=== PATIENT | female | born 1980 | race Caucasian/White ===

== ENCOUNTER 2017-12-31 18:58 | Inpatient (IN) ==
[2017-12-31] MEDS ORDERED: Ibuprofen 600 MG TABLET PO PRN ×2 (19:34→23:06)
--- NOTE | 2017-12-31 20:12 | OB/GYN History & Physical ---
Date of Encounter: 12/31/17 Time of Encounter: 20:04 Assessment and Plan (1) Vaginal delivery Current visit: Yes Status: Acute Pt doing well upon arrival. Placenta delivered spontaneous and intact soon after arrival. Lochia moderate. Pitocin given IM. Plan to observe in L&D for 2 hours and then transfer to . (2) History of depression Current visit: Yes Status: Acute Zoloft restarted per pt request. (3) Tobacco abuse Current visit: Yes Status: Acute (4) Social problem Current visit: Yes Status: Acute donor services technician consult ordered. (5) No care in current Current visit: Yes Status: Acute Qualifiers: Trimester: third trimester Qualified Code(s): O09.33 - Supervision of with insufficient care, third trimester History of Present Illness Chief complaint: delivered at home HPI: Ms. Brown is a 37 year old female who presents via EMS after delivering a baby girl at home. EMS arrived after baby was born, clamped cord and transported Mom & Baby. Mom reports she did not realize she was in labor; she notes pain this afternoon after carrying her 1 y/o in his car seat. She says she went to the restroom and felt pressure and realized baby was coming. Believes LMP was end of March 2017. Reports 3 prior deliveries were vaginal term deliveries without complications. She reports no PNC due to social situations. She reports financial and family stress; her 20 y/o daughter was recently admitted for depression and suicide attempt. Pt reports h/o PP depression following delivery of her 1 year-old and a history of depression and suicide ideation a "several years ago". She states that she has felt isolated since the of her last child because their car has been broken down and she has been alone. Past Med Surg Social Fam HX - Past Medical History Medical history: no medical history Psychiatric history: depression (per HPI) - Past Surgical History Surgical History: no surgical history - Social History Smoking Status: Current every day smoker Smokeless Tobacco Status: No Alcohol use: none Drug use: none Obstetrical History - Pregnancies : 4 Livin - History/Complications History/Complications: Pt reports 3 prior term vaginal deliveries without complications. Medications and Allergies Ibuprofen [Motrin] 800 mg PO Q8HR #30 tablet 02/16/15 [Rx] Review of System OB All systems PM: reviewed and no additional remarkable complaints except as stated - Psychiatric Psychiatric: depression (as per HPI) Exam - Constitutional Constitutional: moderate distress - HEENT HEENT: Mucus Membranes Moist - Lungs Respiratory exam: CTAB - Cardiovascular Cardiovascular exam: RRR - Extremities Extremities exam: normal inspection - Anus/Rectum Anus/Rectum: Present: normal perianal skin Results Result Diagrams: 12/31/17 20:12 All other labs normal.
[2017-12-31 20:30] LABS: Basophils # 0.1 K/mcL (0.0-0.2); Basophils % 0.4 %; Eosinophils # 0.3 K/mcL (0.0-0.6); Eosinophils % 1.6 %; Hematocrit 35.2 % (35.3-44.9); Hemoglobin 12.2 g/dL (11.5-15.4); Immature Granulocytes % 0.5 % (0-4); Lymphocytes # 1.7 K/mcL (0.6-4.6); Lymphocytes % 10.1 %; Mean Corpuscular HGB Conc 34.7 g/dL (31.6-35.5); Mean Corpuscular Hemoglobin 30.1 pg (28.0-33.3); Mean Corpuscular Volume 86.9 fL (83.0-100.0); Mean Platelet Volume 10.2 fL (9.4-12.4); Monocytes # 0.7 K/mcL (0.0-1.3); Monocytes % 4.3 %; Neutrophils # 13.8 K/mcL (1.6-8.9); Platelet Count 315 K/mcL (140-400); Red Blood Count 4.05 M/mcL (3.82-4.97); Red Cell Distribution Width 13.8 % (11.5-14.5); Segmented Neutrophils % 83.1 %
[2017-12-31 21:20] LABS: HIV-1&2 Antibody & p24 Ag Nonreactive (Nonreactive); Hepatitis B Surface Antigen Nonreactive (Nonreactive)
[2017-12-31 21:23] LABS: Rubella IgG Antibody POSITIVE (POSITIVE); Varicella Zoster IgG Antibody Positive
[2017-12-31] MEDS ORDERED: Lanolin 7 G OINT...G. TP PRN (23:06)
[2017-12-31] MEDS ORDERED: Measles/Mumps/Rubella Vacc 0.5 ML VIAL SQ PRN (23:06)
[2017-12-31] MEDS ORDERED: Oxytocin 20 units/ LR 1000 mL 20 UNIT/1,000 ML BAG IVC SCH (23:06)
[2017-12-31] MEDS ORDERED: Acetaminophen 325 MG TABLET PO PRN (23:06)
[2017-12-31] MEDS ORDERED: Benzocaine/Menthol 56 GM AEROSOL SPRAY TP PRN (23:06)
[2018-01-01] MEDS ORDERED: Ibuprofen 400 MG TABLET PO SCH
[2018-01-01 00:54] LABS: Bilirubin,Urine Negative (Negative); Blood,Urine Large (Negative); Clarity,Urine Cloudy (Clear); Color,Urine Yellow (Yellow); Glucose,Urine (UA) Normal (Normal); Ketones,Urine Negative (Negative); Leukocyte Esterase,Urine Moderate (Negative); Nitrite,Urine Negative (Negative); Protein,Urine 30 mg/dL (Neg-Trace); Specific Gravity,Urine 1.011 (1.010-1.025); Urobilinogen,Urine Normal (Normal)
[2018-01-01 00:55] LABS: Bacteria,Urine None Seen per hpf (None-Few); Hyaline Casts,Urine None Seen per lpf (None-Few); RBC,Urine TNTC per hpf (0-3); Squamous Epithelial Cell,Urine Many per lpf (None-Few); WBC,Urine 50-100 per hpf (0-3)
[2018-01-01 01:07] LABS: Amphetamine Screen,Urine Positive ng/mL (Cutoff=1000); Barbiturate Screen,Urine Negative ng/mL (Cutoff=200); Benzodiazepines Screen,Urine Negative ng/mL (Cutoff=200); Cannabinoid Screen,Urine Negative ng/mL (Cutoff = 50); Cocaine Screen,Urine Negative ng/mL (Cutoff= 300); Opiate Screen,Urine Negative ng/mL (Cutoff=300); Phencyclidine Screen,Urine Negative ng/mL (Cutoff=25)
[2018-01-01 04:37] LABS: Basophils # 0.1 K/mcL (0.0-0.2); Basophils % 0.5 %; Eosinophils # 0.3 K/mcL (0.0-0.6); Eosinophils % 1.8 %; Hematocrit 33.2 % (35.3-44.9); Hemoglobin 11.4 g/dL (11.5-15.4); Immature Granulocytes % 0.5 % (0-4); Lymphocytes # 2.4 K/mcL (0.6-4.6); Lymphocytes % 15.3 %; Mean Corpuscular HGB Conc 34.3 g/dL (31.6-35.5); Mean Corpuscular Hemoglobin 30.1 pg (28.0-33.3); Mean Corpuscular Volume 87.6 fL (83.0-100.0); Mean Platelet Volume 10.3 fL (9.4-12.4); Monocytes # 0.9 K/mcL (0.0-1.3); Monocytes % 6.1 %; Neutrophils # 11.6 K/mcL (1.6-8.9); Platelet Count 311 K/mcL (140-400); Red Blood Count 3.79 M/mcL (3.82-4.97); Red Cell Distribution Width 13.7 % (11.5-14.5); Segmented Neutrophils % 75.8 %
[2018-01-01 08:23] VITALS: BP 134/93
--- NOTE | 2018-01-01 08:28 | Discharge Summary ---
Date of Encounter: 01/01/18 Time of Encounter: 08:19 - Discharge Diagnosis (1) Vaginal delivery Priority: Primary Status: Acute Comments: S/P Vaginal Delivery Day 1 Pain is well controlled Lochia is light and without clots VSS Tolerating regular diet, passing flatus Voiding without difficulty Discharge home today (2) No care in current Priority: Primary Status: Acute Qualifiers: Trimester: third trimester Qualified Code(s): O09.33 - Supervision of with insufficient care, third trimester (3) Social problem Priority: Secondary Status: Acute (4) Tobacco abuse Priority: Secondary Status: Acute (5) History of depression Priority: Secondary Status: Acute - Discharge Medications Prescriptions: Ibuprofen [Motrin] 600 mg PO Q6HR PRN #30 tablet PRN Reason: cramping Docusate [Colace] 100 mg PO BID PRN #30 capsule PRN Reason: Constipation Ferrous Sulfate 325 mg PO DAILY #90 tablet Vit/FA 1 each PO DAILY #90 tablet Sertraline [Zoloft] 50 mg PO DAILY #90 tablet Home Medications: Acetaminophen [Tylenol] 650 mg PO Q6HR PRN tablet 01/01/18 [Rx] Benzocaine/Menthol Mineral [Dermoplast Mineral] 1 appl TP QID PRN aerosol 01/01/18 [Rx] Docusate [Colace] 100 mg PO BID PRN #30 capsule 01/01/18 [Rx] Ferrous Sulfate 325 mg PO DAILY #90 tablet 01/01/18 [Rx] Ibuprofen [Motrin] 600 mg PO Q6HR PRN #30 tablet 01/01/18 [Rx] Vit/FA 1 each PO DAILY #90 tablet 01/01/18 [Rx] Sertraline [Zoloft] 50 mg PO DAILY #90 tablet 01/01/18 [Rx] Allergies/Adverse Reactions: 3 Allergy/AdvReac Type Severity Reaction Status Date / Time diphenhydramine Allergy Hives Verified 12/31/17 21:19 [From [facility]] Data Procedures and tests throughout hospitalization: Laboratory Tests 12/31/17 12/31/17 12/31/17 20:05 20:05 20:05 WBC RBC Hgb Hct MCV MCH MCHC RDW Plt Count MPV Immature Gran % Seg Neutrophils % Lymphocytes % Monocytes % Eosinophils % Basophils % Neutrophils # Lymphocytes # Monocytes # Eosinophils # Basophils # Urine Color Urine Clarity Urine pH Ur Specific [place] Urine Protein Urine Glucose (UA) Urine Ketones Urine Blood Urine Nitrite Urine Bilirubin Urine Urobilinogen Ur Leukocyte Esterase Urine Microscopic RBC Urine Microscopic WBC Ur Squamous Epith Cells Urine Bacteria Hyaline Casts Ur Culture Indicated? Urine Opiates Screen Ur Barbiturates Screen Ur Phencyclidine Scrn Ur Amphetamines Screen U Benzodiazepines Scrn Urine Cocaine Screen U Marijuana (THC) Screen Ur Drug Screen Interp T.pallidum Ab Interpret Negative Hep Bs Antigen Nonreactive Hepatitis C Ab Screen HIV Ag/Ab Combo Qual Nonreactive Rubella IgG Antibody POSITIVE VZV IgG Antibody Positive Blood Type O POSITIVE 12/31/17 12/31/17 01/01/18 20:12 20:12 00:45 WBC 16.6 H RBC 4.05 Hgb 12.2 Hct 35.2 L MCV 86.9 MCH 30.1 MCHC 34.7 RDW 13.8 Plt Count 315 MPV 10.2 Immature Gran % 0.5 Seg Neutrophils % 83.1 Lymphocytes % 10.1 Monocytes % 4.3 Eosinophils % 1.6 Basophils % 0.4 Neutrophils # 13.8 H Lymphocytes # 1.7 Monocytes # 0.7 Eosinophils # 0.3 Basophils # 0.1 Urine Color Yellow Urine Clarity Cloudy A Urine pH 6.0 Ur Specific [place] 1.011 Urine Protein 30 H Urine Glucose (UA) Normal Urine Ketones Negative Urine Blood Large H Urine Nitrite Negative Urine Bilirubin Negative Urine Urobilinogen Normal Ur Leukocyte Esterase Moderate H Urine Microscopic RBC TNTC H Urine Microscopic WBC 50-100 H Ur Squamous Epith Cells Many H Urine Bacteria None Seen Hyaline Casts None Seen Ur Culture Indicated? NO. A Urine Opiates Screen Ur Barbiturates Screen Ur Phencyclidine Scrn Ur Amphetamines Screen U Benzodiazepines Scrn Urine Cocaine Screen U Marijuana (THC) Screen Ur Drug Screen Interp T.pallidum Ab Interpret Hep Bs Antigen Hepatitis C Ab Screen Nonreactive HIV Ag/Ab Combo Qual Rubella IgG Antibody VZV IgG Antibody Blood Type 01/01/18 01/01/18 00:45 03:49 WBC 15.3 H RBC 3.79 L Hgb 11.4 L Hct 33.2 L MCV 87.6 MCH 30.1 MCHC 34.3 RDW 13.7 Plt Count 311 MPV 10.3 Immature Gran % 0.5 Seg Neutrophils % 75.8 Lymphocytes % 15.3 Monocytes % 6.1 Eosinophils % 1.8 Basophils % 0.5 Neutrophils # 11.6 H Lymphocytes # 2.4 Monocytes # 0.9 Eosinophils # 0.3 Basophils # 0.1 Urine Color Urine Clarity Urine pH Ur Specific [place] Urine Protein Urine Glucose (UA) Urine Ketones Urine Blood Urine Nitrite Urine Bilirubin Urine Urobilinogen Ur Leukocyte Esterase Urine Microscopic RBC Urine Microscopic WBC Ur Squamous Epith Cells Urine Bacteria Hyaline Casts Ur Culture Indicated? Urine Opiates Screen Negative Ur Barbiturates Screen Negative Ur Phencyclidine Scrn Negative Ur Amphetamines Screen Positive H U Benzodiazepines Scrn Negative Urine Cocaine Screen Negative U Marijuana (THC) Screen Negative Ur Drug Screen Interp See Below T.pallidum Ab Interpret Hep Bs Antigen Hepatitis C Ab Screen HIV Ag/Ab Combo Qual Rubella IgG Antibody VZV IgG Antibody Blood Type Labs on day of discharge: Labs from last 24 hours 01/01/18 01/01/18 01/01/18 03:49 00:45 00:45 WBC 15.3 H RBC 3.79 L Hgb 11.4 L Hct 33.2 L MCV 87.6 MCH 30.1 MCHC 34.3 RDW 13.7 Plt Count 311 MPV 10.3 Immature Gran % 0.5 Seg Neutrophils % 75.8 Lymphocytes % 15.3 Monocytes % 6.1 Eosinophils % 1.8 Basophils % 0.5 Neutrophils # 11.6 H Lymphocytes # 2.4 Monocytes # 0.9 Eosinophils # 0.3 Basophils # 0.1 Urine Color Yellow Urine Clarity Cloudy A Urine pH 6.0 Ur Specific [place] 1.011 Urine Protein 30 H Urine Glucose (UA) Normal Urine Ketones Negative Urine Blood Large H Urine Nitrite Negative Urine Bilirubin Negative Urine Urobilinogen Normal Ur Leukocyte Esterase Moderate H Urine Microscopic RBC TNTC H Urine Microscopic WBC 50-100 H Ur Squamous Epith Cells Many H Urine Bacteria None Seen Hyaline Casts None Seen Ur Culture Indicated? NO. A Urine Opiates Screen Negative Ur Barbiturates Screen Negative Ur Phencyclidine Scrn Negative Ur Amphetamines Screen Positive H U Benzodiazepines Scrn Negative Urine Cocaine Screen Negative U Marijuana (THC) Screen Negative Ur Drug Screen Interp See Below T.pallidum Ab Interpret Hep Bs Antigen Hepatitis C Ab Screen HIV Ag/Ab Combo Qual Rubella IgG Antibody VZV IgG Antibody Blood Type 12/31/17 12/31/17 12/31/17 20:12 20:12 20:05 WBC 16.6 H RBC 4.05 Hgb 12.2 Hct 35.2 L MCV 86.9 MCH 30.1 MCHC 34.7 RDW 13.8 Plt Count 315 MPV 10.2 Immature Gran % 0.5 Seg Neutrophils % 83.1 Lymphocytes % 10.1 Monocytes % 4.3 Eosinophils % 1.6 Basophils % 0.4 Neutrophils # 13.8 H Lymphocytes # 1.7 Monocytes # 0.7 Eosinophils # 0.3 Basophils # 0.1 Urine Color Urine Clarity Urine pH Ur Specific [place] Urine Protein Urine Glucose (UA) Urine Ketones Urine Blood Urine Nitrite Urine Bilirubin Urine Urobilinogen Ur Leukocyte Esterase Urine Microscopic RBC Urine Microscopic WBC Ur Squamous Epith Cells Urine Bacteria Hyaline Casts Ur Culture Indicated? Urine Opiates Screen Ur Barbiturates Screen Ur Phencyclidine Scrn Ur Amphetamines Screen U Benzodiazepines Scrn Urine Cocaine Screen U Marijuana (THC) Screen Ur Drug Screen Interp T.pallidum Ab Interpret Hep Bs Antigen Hepatitis C Ab Screen Nonreactive HIV Ag/Ab Combo Qual Rubella IgG Antibody VZV IgG Antibody Blood Type O POSITIVE 12/31/17 12/31/17 20:05 20:05 WBC RBC Hgb Hct MCV MCH MCHC RDW Plt Count MPV Immature Gran % Seg Neutrophils % Lymphocytes % Monocytes % Eosinophils % Basophils % Neutrophils # Lymphocytes # Monocytes # Eosinophils # Basophils # Urine Color Urine Clarity Urine pH Ur Specific [place] Urine Protein Urine Glucose (UA) Urine Ketones Urine Blood Urine Nitrite Urine Bilirubin Urine Urobilinogen Ur Leukocyte Esterase Urine Microscopic RBC Urine Microscopic WBC Ur Squamous Epith Cells Urine Bacteria Hyaline Casts Ur Culture Indicated? Urine Opiates Screen Ur Barbiturates Screen Ur Phencyclidine Scrn Ur Amphetamines Screen U Benzodiazepines Scrn Urine Cocaine Screen U Marijuana (THC) Screen Ur Drug Screen Interp T.pallidum Ab Interpret Negative Hep Bs Antigen Nonreactive Hepatitis C Ab Screen HIV Ag/Ab Combo Qual Nonreactive Rubella IgG Antibody POSITIVE VZV IgG Antibody Positive Blood Type Date of admission: 12/31/17 18:58 Primary care physician: PCP NONE Consults: 12/31/17 23:06 Consult to Button Attaching Machine Operator [CONS] Routine Comment: Vaginal delivery, consult needed Consult to Review Manager [CONS] Routine Reason for SW Consult: no care Discharging clinician: Ailin Solano Anticipated date of discharge: 01/01/18 - Patient Status Disposition: Home, Self-Care Condition: Good Functional capacity at discharge: independent ambulation Overall status at discharge: patient is progressing back to baseline - Discharge Instructions Follow Up With: NONE,PCP [Primary Care Provider] - Yuliana Pathak CNM [Non-Partnered Physician] - - Diet and Activity Activity: increase activity as tolerated Diet: regular diet Hospital Course Reason for admission: IUP at term Delivery: (at home) Episiotomy: none Laceration: none Other procedures: none complications: none Discharge diagnosis: IUP at term delivered baby: female Time spent discussing smoking cessation with patient: 3 to 10 minutes Time Attestation: Total time spent providing and/or coordinating discharge services: Time Spent: Less than 30 minutes Exam - Constitutional Vitals: Temp Pulse Resp BP Pulse Ox 97.9 F 79 18 130/88 99 01/01/18 03:50 01/01/18 03:50 01/01/18 03:50 01/01/18 03:50 01/01/18 03:50 General appearance IM: cooperative, A&O X 3, pleasant - Respiratory Respiratory exam: Present: CTAB - Cardiovascular Cardiovascular exam IM: Present: RRR, +S1, +S2 - GI/Abdominal GI/Abdominal exam IM: normal bowel sounds, soft - Rectal Rectal exam: deferred - Uterine Tone: Firm Uterus Position: 1 Finger Below Umbilicus, Midline - Extremities Exam Extremities exam IM: Present: cyanotic, normal capillary refill, normal inspection - Neurological Exam Neurological exam: alert, oriented X3, reflexes normal
[2018-01-01] MEDS ORDERED: Prenatal Vit/FA 1 EACH TABLET PO SCH (09:00)
[2018-01-01] MEDS ORDERED: *HR* Oxytocin 10 UNIT/ML VIAL IM ONE (13:32)
== END 2018-01-01 13:33 | disposition home or self-care (01) | DRG 560 ==
LOC: 1NENULAB 18:58 → 1NENUOBS 22:06
PROVIDERS: ADMIT Registered Nurse; ATTEND Registered Nurse